=== PATIENT | female | born 1930 | race African-American/Black ===

== ENCOUNTER → 2019-12-31 | Day surgery (SDC) | payer MEDICARE ==
[2019-12-28 11:54] LABS: BASOPHILS % 0.4 % (0.0-1.0); EOSINOPHILS # (AUTO) 0.4 (0.0-0.4); EOSINOPHILS % 4.8 % (0.0-6.0); HEMATOCRIT 33.1 % (34.2-44.1); HEMOGLOBIN 10.4 g/dL (12.0-16.0); LYMPHOCYTES % 25.6 % (18.0-39.1); MEAN CORPUSCULAR HEMOGLOBIN 26.3 pg (28-32); MEAN CORPUSCULAR HGB CONC 31.4 g/dL (31-35); MEAN CORPUSCULAR VOLUME 83.6 fL (81-99); MONOCYTES # (AUTO) 0.7 (0.2-0.8); MONOCYTES % 9.1 % (4.4-11.3); NEUTROPHILS # (AUTO) 4.6 (2.1-6.9); NEUTROPHILS % 59.8 % (38.7-80.0); PLATELET COUNT 279 x10e3/uL (140-360); RED BLOOD COUNT 3.96 x10e6/uL (3.6-5.1); RED CELL DISTRIBUTION WIDTH 14.6 % (11.7-14.4)
[2019-12-28 12:15] LABS: ALANINE AMINOTRANSFERASE 9 IU/L (0-55); ALBUMIN 3.7 g/dL (3.5-5.0); ALBUMIN/GLOBULIN RATIO 1.1 (0.8-2.0); ALKALINE PHOSPHATASE 80 IU/L (40-150); ANION GAP 10.9 mmol/L (8-16); BLOOD UREA NITROGEN 22 mg/dL (7-26); BUN/CREATININE RATIO 23 (6-25); CALCIUM 9.1 mg/dL (8.4-10.2); CARBON DIOXIDE 29 mmol/L (22-29); CHLORIDE 103 mmol/L (98-107); CREATININE, SERUM 0.96 mg/dL (0.57-1.11); EST GLOMERULAR FILTRATION RATE > 60 ML/MIN (60-); GLUCOSE 130 mg/dL (74-118); POTASSIUM 3.9 mmol/L (3.5-5.1); SODIUM 139 mmol/L (136-145)
[~2019-12-31] VITALS: Ht 160 cm; Wt 64.4 kg
[~2019-12-31] MED LIST: ALPRAZOLAM 0.5 MG TAB ONE; AMLODIPINE BESYL5 MG PO; ASPIRIN 325 MG TAB ONE; CLOPIDOGREL75 MG PO; CRESTOR10 MG PO; DIOVAN HCT 1601 EAC1 PO; DIPHENHYDRAMINE HCL 25 MG CAP ONE; FENTANYL CITRATE/PF 100MCG/2 ML INJ ONE; HEPARIN SOD/SOD CHLORIDE 2,000 ML ONE; IOPAMIDOL 300MG/ML 100 ML INFUS..BTL IV ONE; LIDOCAINE HCL 2% LOCAL 20 ML VIAL ONE; MELOXICAM7.5 MG PO; METFORMIN HCL500 MG PO; METOPROLOL SUCC50 MG PO; MIDAZOLAM HCL 2 MG/2 ML VIAL ONE; PRASUGREL 10 MG TAB ONE; SODIUM CHLORIDE 0.9% 1000ML 1,000 ML ONE; VERAPAMIL HCL 2.5 MG/ML 2 ML VIAL ONE
[2019-12-31 14:45] VITALS: BP 129/61
--- NOTE | 2019-12-31 14:45 | NUR ---
1445pm RECEIVING NOTE CRITICAL CARE TECHNICIAN RECOVERY DEPT............................................................... Bedside report received from KRISTEN Bhatt. Identifierx2. Alert oriented and appropriate, PERRLA, respirations even and unlabored to room air. Pulses x4 extremities equal and strong. Pedal pulses PT/DP rt leg 2+ palpable and marked. Left leg foot heel dressing doppler pulses present.Cap fill brisk < 3 sec. Rt Tr band site No gross issues pain pallor pressure or dysrhythmia. Skin warm and dry integrity appears D/I. IV 20g to left hand at 100cchr. Presents healthy w/o s/s of infiltration or complaint. Abdomen soft and supple. pt offered toileting, denies need to urinate or defecate. No personal affects with patient. Family at bedside. Pt and family verbalizes understanding of POC. Currently w/o complaint of pain or need. ds/rn
[2019-12-31 15:00] VITALS: BP 120/70
--- NOTE | 2019-12-31 15:18 | Operative Report ---
DATE OF PROCEDURE: 12/31/2019 SURGEON: Sai Toth MD INDICATION: Peripheral arterial disease, critical limb ischemia with ulceration of the left lower extremity. PROCEDURES PERFORMED: 1. Catheter placement, abdominal aortogram. 2. Left lower extremity angiogram with third-order catheter placement. 3. Atherectomy and secondary thrombectomy of the left femoral artery. 4. Deployment of right wrist TR band. COMPLICATIONS: None. BLOOD LOSS: Minimal. RECOMMENDATIONS: Staged intervention on the right posterior tibial artery via tibial access and intervention as indicated. DESCRIPTION OF PROCEDURE: Access obtained in the right radial artery. A 6-[place] sheath was placed and it was advanced to the abdominal aorta. Abdominal aortogram demonstrated calcified iliacs with mild disease. The aorta was calcified. The catheter then advanced to the left femoral artery. Mid left femoral artery 90% stenosis heavily calcified. Diffuse disease in the left posterior tibial artery with focal 90% stenosis, three-vessel runoff. A decision was made to intervene on the left femoral artery. The lesion was crossed using a ViperWire. Orbital atherectomy was performed using a CSI device. No balloon was available for length to angioplasty the left femoral artery, hence atherectomy only. Right wrist TR band applied. The patient discharged home same day. MD JALEN Calles/AVIVAL /[id number]
[2019-12-31 15:30] VITALS: BP 115/17
[2019-12-31 16:00] VITALS: BP 126/70
[2019-12-31 16:30] VITALS: BP 128/66
--- NOTE | 2019-12-31 17:00 | NUR ---
1700p RADIAL COMPRESSION REMOVAL NOTE: Initial Cuff volume 12 cc 1700p -2cc Removed No hematoma/bleeding noted with normal neurovascular function. 1715p -5cc Removed No hematoma/ bleeding noted with normal neurovascular function. 1730p -5cc Removed No hematoma/bleeding noted with normal neurovascular function. Air removal completed. Stasis achieved sterile 2x2,Tegaderm, Coban dressing No hematoma, bleeding noted with normal neurovascular function. Wrist splint in place. Pt instructed on POC. Ds/Rn
--- NOTE | 2019-12-31 18:00 | NUR ---
1800pm CHIEF UNDERWRITER RECOVERY DISCHARGE NURSING NOTE Pt meets DC criteria. RT Wrist assessed for s/s of complication and presence of hematoma. Skin warm, dry, no discolor, and pulses present. IV removed from left ac. Distal tip appears intact. VS WNL. Pt denies pain, sob, or need at this time. Family at BS. Review of discharge paperwork and follow up instructions. verbalized understanding. Pt to wheelchair and transported to front of hospital. Transferred to private vehicle under own strength w/o incident with DC paperwork in hand. - gregory/benny
[2019-12-31 18:15] VITALS: BP 126/67
== END | disposition home or self-care (01) ==
LOC: CATH LAB 11:20
PROVIDERS: ATTEND Internal Medicine Interventional Cardiology
DX: I70.249 Atherosclerosis of native arteries of left leg with ulceration of unspecified site (principal); I20.8 Other forms of angina pectoris; I82.493 Acute embolism and thrombosis of other specified deep vein of lower extremity, bilateral; E11.9 Type 2 diabetes mellitus without complications; E78.5 Hyperlipidemia, unspecified; I10 Essential (primary) hypertension; T14.90XA Injury, unspecified, initial encounter; X58.XXXA Exposure to other specified factors, initial encounter; Z01.812 Encounter for preprocedural laboratory examination; Z79.02 Long term (current) use of antithrombotics/antiplatelets; Z79.84 Long term (current) use of oral hypoglycemic drugs; Z95.0 Presence of cardiac pacemaker
CPT/HCPCS: 36415; 37225; 75625; 75710; 80053; 85025; C1724; C1769 ×3; C1887 ×3; C2623; J2001; J2250; J3010; J7030; Q9967; 36247; 99152; 99153